=== PATIENT | male | born 1975 | race Hispanic/Latino ===

== ENCOUNTER 2022-11-27 07:13 | Day surgery (SDC) | payer SELFPAY ==
[2022-11-27] MEDS ORDERED: Ketorolac Tromethamine 30 MG/ML VIAL ONE (08:27)
[2022-11-27] MEDS ORDERED: Bupivacaine PF 0.5% 30 ML VIAL ONE (09:02)
[2022-11-27] MEDS ORDERED: EPINEPHrine 1 MG/ML AMP ONE (09:02)
[2022-11-27] MEDS ORDERED: fentaNYL 50 mcg/mL 1 mL Vial ONE (09:09)
[2022-11-27] MEDS ORDERED: Piperacillin/Tazobactam 3.375 GM VIAL ONE (09:14)
[2022-11-27] MEDS ORDERED: Sodium Chloride 0.9% 100 ML ONE (09:15)
[2022-11-27] MEDS ORDERED: Rocuronium Bromide 10 MG/ML (10ML VIAL) ONE (09:32)
[2022-11-27] MEDS ORDERED: Ondansetron PF 4 MG/2 ML Vial ONE (09:32)
[2022-11-27] MEDS ORDERED: PROPOFOL 200 MG/20 ML VIAL ONE (09:32)
[2022-11-27] MEDS ORDERED: Succinylcholine Chloride 100 MG/5 ML SYRINGE FS ONE (09:32)
[2022-11-27] MEDS ORDERED: Lidocaine 1% PF 5 ML VIAL ONE (09:32)
[2022-11-27] MEDS ORDERED: Dexamethasone 20 MG/5 ML VIAL ONE (09:32)
[2022-11-27] MEDS ORDERED: Meperidine HCl/PF 25 MG/ML VIAL ONE (10:57)
== END 2022-11-27 16:40 | disposition home or self-care (01) ==
LOC: SDC 07:13
PROVIDERS: ATTEND Surgery
PROC: 0DTJ4ZZ Resection of Appendix, Percutaneous Endoscopic Approach (ICD-10-PCS; principal; 2022-11-27)
PROC: 0WUF0JZ Supplement Abdominal Wall with Synthetic Substitute, Open Approach (ICD-10-PCS; principal; 2022-11-27)
DX: K35.30 Acute appendicitis with localized peritonitis, without perforation or gangrene (principal); K42.9 Umbilical hernia without obstruction or gangrene; K66.0 Peritoneal adhesions (postprocedural) (postinfection); F17.210 Nicotine dependence, cigarettes, uncomplicated; Z79.899 Other long term (current) drug therapy
CPT/HCPCS: 88304; A4314; A4649; J0171; J1100; J1885; J2175; J2405; J2543; J2704; J3010; J3490; S0020